=== PATIENT | female | born 1970 | race Caucasian/White ===

== ENCOUNTER 2016-10-31 06:06 | Emergency (ER) | payer BC ==
[2016-10-31 06:16] VITALS: BP 141/92; PULSE 79; RESP 18; TEMP 97.7; O2SAT 98
--- NOTE | 2016-10-31 06:17 | EDPHY ---
H & P Stated Complaint: R knee radiates to groin and LE Source: Patient - Personal History LMP (Females 10-55): Now Current Tetanus/Diphtheria Vaccine: Unsure Current Tetanus Diphtheria and Acellular Pertussis (TDAP): Unsure Tetanus Vaccine Date: <10 years - Medical/Surgical History Hx Asthma: No Hx Chronic Respiratory Disease: No Hx Diabetes: No Hx Cardiac Disease: No Hx Renal Disease: No Hx Cirrhosis: No Hx Alcoholism: No Hx HIV/AIDS: No Hx Splenectomy or Spleen Trauma: No Other PMH: anxiety, ACL surgery on R/L, - Social History Smoking Status: Never smoked HPI/ROS: HPI CHIEF COMPLAINT: Right leg pain possible DVT HISTORY OF PRESENT ILLNESS: This patient very pleasant 46-year-old female, denies any significant medical history does not take any daily medications she is visiting [place] from [place], she arrived on Wednesday. She tells me on she did some vigorous exercise approximately 25 mile bike, and then played [place]. She states on Wednesday she developed right leg pain that became rather severe last night bothered her most of the night and then decided come to the emergency room as the pain continued. She has had no swelling. She describes the pain as posterior right calf, and right inner thigh. She does not think it is musculoskeletal, however does hurt worse when she moves. And when you press. No swelling. No history of DVT or PE denies pleuritic pain, denies shortness of breath, denies chest pain. Past Medical History: No medical history Past Surgical History: No recent surgical history Social History: Denies daily use of drugs alcohol tobacco products, lives in [place] Family History: Noncontributory ROS REVIEW OF SYSTEMS: A comprehensive 10 point review of systems is otherwise negative aside from elements mentioned in the history of present illness. Exam Constitutional triage nursing summary reviewed, vital signs reviewed, awake/ alert. Eyes normal conjunctivae and sclera, EOMI, PERRLA. HENT normal inspection, atraumatic, moist mucus membranes, no epistaxis, neck supple/ no meningismus, no raccoon eyes. Respiratory clear to auscultation bilaterally, normal breath sounds, no respiratory distress, no wheezing. Cardiovascular rate normal, regular rhythm, no murmur, no edema, distal pulses normal. Gastrointestinal soft, non-tender, no rebound, no guarding, normal bowel sounds, no distension, no pulsatile mass. Genitourinary no CVA tenderness. Musculoskeletal right lower extremity: Right lower extremity is neurovascular intact with good pulse, good cap refill, warm extremity good DP, good femoral pulse, no obvious signs of swelling or trauma. Mild tenderness palpation posterior calf and inner right thigh. No significant swelling no edema. no midline vertebral tenderness, full range of motion, no calf swelling, no tenderness of extremities, no meningismus, good pulses, neurovascularly intact. Skin pink, warm, & dry, no rash, skin atraumatic. Neurologic awake, alert and oriented x 3, AAOx3, moves all 4 extremities equally, motor intact, sensory intact, CN II-XII intact, normal cerebellar, normal vision, normal speech. Psychiatric normal mood/affect. Heme/Lymph/Immune no lymphadenopathy. Differential Diagnosis: Includes but is not limited to in a particular order musculoskeletal right leg pain, DVT Medical Decision Making: Plan for this patient Doppler ultrasound of right lower extremity rule out DVT. Re-evaluation: 06: Will plan on doing ultrasound to rule out DVT however I do feel this is musculoskeletal from vigorous exercise 2 days ago. There is no evidence of swelling on exam. I think DVT is unlikely however patient really would like a ultrasound to make sure she does not have a DVT which I will order her. If her ultrasound for DVT is unremarkable for DVT I do recommend stretches, anti- inflammatory pain medicine warm compresses. Return emergency room if there is any worsening symptoms questions or concerns. (Ron Logan) Constitutional: Initial Vital Signs Temperature (C) 36.5 C 10/31/16 06:08 Heart Rate 79 10/31/16 06:08 Respiratory Rate 18 10/31/16 06:08 Blood Pressure 141/92 H 10/31/16 06:08 O2 Sat (%) 98 10/31/16 06:08 O2 Delivery Mode Room Air Allergies/Adverse Reactions: tetracycline Allergy (Verified 10/31/16 06:12) Home Medications: Medication Instructions Recorded Venlafaxine 37.5MG (*) 10/31/16 Medical Decision Making Other Provider: Care assumed at 0640 with plan for US then disposition to home if normal. 650: Right Leg ultrasound per Dr. Degroot is normal, no DVT or Jimenez cyst. Results discussed with the patient at this time, will be discharged as per Dr. Logan's plan. Compartments are soft on my exam in the calf. (Lauro Pham) Departure - Departure Disposition: Home, Routine, Self-Care Clinical Impression: Musculoskeletal leg pain Qualifiers: Laterality: right Qualified Code(s): M79.604 - Pain in right leg Condition: Good Instructions: Leg Pain (ED) Additional Instructions: 1.I recommend that you loosely stretch your leg. 2. Take ibuprofen or Tylenol every 4-6 hours for pain control. 3. Use warm compresses. 4. Return emergency room if you have any worsening symptoms questions or concerns. Referrals: IFRAH DIAZ [Other] - As per Instructions
== END 2016-10-31 06:55 | disposition home or self-care (01) ==
DX: M79.604 Pain in right leg (principal)